=== PATIENT | female | born 1975 | race Caucasian/White ===

== ENCOUNTER → 2025-01-26 | Outpatient (CLI) | payer BC ==
[2025-01-26 19:17] LABS: LDL/HDL RATIO 4.4; Thyroid Stimulating Hormone 2.260 uIU/mL (0.360-4.800)
[2025-01-26 19:18] LABS: Alanine Aminotransfer (ALT/SGP 46 U/L (12-78); Albumin, Blood 3.7 g/dL (3.4-5.0); Albumin/Globulin Ratio 1.0 (0.8-1.8); Anion Gap 7 mmol/L (3-11); Aspartate Aminotrans (AST/SGOT 22 U/L (12-37); Bilirubin, Total 0.2 mg/dL (0.1-1.0); Blood Urea Nitrogen 19 mg/dL (8-24); CHOL/HDL RATIO 5.8; CO2, Blood 27 mmol/L (21-32); Calcium, Blood 9.0 mg/dL (8.5-10.1); Chloride, Blood 106 mmol/L (98-108); Cholesterol 209 mg/dL (50-200); Creatinine, Blood 0.64 mg/dL (0.40-1.00); Globulin, Blood 3.6 g/dL (2.2-4.0); Glucose, Blood 96 mg/dL (70-99); HDL Cholesterol 36 mg/dL (>39); Low Density Lipoprotein Chol 159 mg/dL (0-110); Potassium, Blood 3.8 mmol/L (3.5-5.5); Sodium, Blood 136 mmol/L (136-145); Total Protein, Blood 7.3 g/dL (6.4-8.2); Triglycerides 69 mg/dL (30-160); Very Low Density Lipoprot Chol 13 mg/dL (6-32)
== END ==
LOC: LAB 17:27 → LAB SHORT 17:27
PROVIDERS: Student in an Organized Health Care Education/Training Program
DX: E66.09 Other obesity due to excess calories (principal); Z79.899 Other long term (current) drug therapy
CPT/HCPCS: 80053; 80061; 83036; 84443